=== PATIENT | male | born 1955 | race Caucasian/White ===

== ENCOUNTER 2016-04-04 10:52 | Emergency (ER) | payer MEDICARE, OTHER ==
[2016-04-04] MEDS ORDERED: Famotidine 20 MG TAB ONE (12:00)
[2016-04-04] MEDS ORDERED: Lorazepam 1 MG TAB ONE (12:00)
[2016-04-04] MEDS ORDERED: diphenhydrAMINE HCl 25 MG CAP ONE (12:00)
[2016-04-04] MEDS ORDERED: Dexamethasone 4 MG TAB ONE (12:00)
== END 2016-04-04 12:05 | disposition home or self-care (01) ==
LOC: MADERS 10:52
DX: L29.9 Pruritus, unspecified (principal); F41.9 Anxiety disorder, unspecified; Z79.899 Other long term (current) drug therapy; Z87.891 Personal history of nicotine dependence
CPT/HCPCS: 99282; J8540

== ENCOUNTER 2016-04-29 11:25 | Outpatient (CLI) | payer MEDICARE | END 2016-04-29 11:26 | disposition home or self-care (01) | LOC: MADLAB 11:25 | PROVIDERS: ATTEND Allergy & Immunology | DX: J45.20 Mild intermittent asthma, uncomplicated (principal); L20.81 Atopic neurodermatitis; L50.1 Idiopathic urticaria; Z93.2 Ileostomy status | CPT/HCPCS: 36415; 82785 ==

== ENCOUNTER 2016-05-10 13:30 | Outpatient (CLI) | payer MEDICARE | END 2016-05-10 13:31 | disposition home or self-care (01) | LOC: MADLAB 13:30 | PROVIDERS: ATTEND Allergy & Immunology | DX: L20.81 Atopic neurodermatitis (principal); L50.1 Idiopathic urticaria; J45.20 Mild intermittent asthma, uncomplicated; Z93.2 Ileostomy status | CPT/HCPCS: 36415 ==

== ENCOUNTER 2016-05-21 13:44 | Outpatient (CLI) | payer MEDICARE ==
--- NOTE | 2016-05-24 08:41 | RAD ---
TWO VIEW CHEST 05/21/16 COMPARISON: 01/08/12 INDICATION: Shortness of breath. FINDINGS: There is hyperinflation of the lungs without consolidation or effusion. The cardiac silhouette is wi thin normal limits in size. IMPRESSION: No focal consolidation. POS: [facility]
== END 2016-05-21 13:45 | disposition home or self-care (01) ==
LOC: MADEKG 13:44
PROVIDERS: ATTEND Family Medicine
DX: R06.02 Shortness of breath (principal)
CPT/HCPCS: 71020; 93005

== ENCOUNTER 2016-05-29 20:01 | Emergency (ER) | payer MEDICARE ==
[2016-05-29] MEDS ORDERED: Ondansetron ODT 4 MG TAB ONE (21:25)
[2016-05-29] MEDS ORDERED: diphenhydrAMINE HCl 25 MG CAP ONE (21:25)
[2016-05-29] MEDS ORDERED: predniSONE 20 MG TAB ONE (21:25)
--- NOTE | 2016-05-29 21:26 | RAD ---
CERVICAL SPINE: 05/29/16 Three views obtained. HISTORY: Neck pain. Joint pain. Cervical vertebrae maintain height and alignment. There is straightening of the lordotic curvature. Moderate degenerative changes are noted in the mid cervical spine with large anterior osteophytes se en at C4-5, C5-6, and C6-7. There is loss of disc height at C5-6. IMPRESSION: Moderate degenerative changes in the mid and lower cervical spine. POS: [facility]
--- NOTE | 2016-05-29 21:27 | RAD ---
RIGHT SHOULDER: 05/29/16 HISTORY: Shoulder pain. Mild spurring at the AC joint. There is no significant degenerative change at the glenohumeral joint . However, there is some calcific density over the humeral head near the greater tuberosity which co uld represent calcific tendinosis. IMPRESSION: Degenerative changes as described. POS: [facility]
== END 2016-05-29 21:57 | disposition home or self-care (01) ==
LOC: MADERS 20:01
DX: M19.011 Primary osteoarthritis, right shoulder (principal); M47.812 Spondylosis without myelopathy or radiculopathy, cervical region; M75.31 Calcific tendinitis of right shoulder; M50.20 Other cervical disc displacement, unspecified cervical region; F41.9 Anxiety disorder, unspecified; Z87.891 Personal history of nicotine dependence; Z79.891 Long term (current) use of opiate analgesic; Z79.899 Other long term (current) drug therapy; Z79.2 Long term (current) use of antibiotics
CPT/HCPCS: 72040; 96372; J2270; J7506; Q0162

== ENCOUNTER 2016-06-15 13:17 | Emergency (ER) | payer MEDICARE ==
[~2016-06-15 13:17] MED LIST: Sodium Chloride 0.9% 1,000 ML BAG ONE; Sodium Chloride 0.9% 500 ML BAG ONE
[2016-06-15 14:24] LABS: ALT (SGPT) 13 U/L (8-55); AST (SGOT) 9 U/L (5-34); Albumin 2.8 g/dL (3.5-5.0); Alkaline Phosphatase 34 U/L (40-150); Anion Gap 15 mmol/L (10-20); BUN (Urea Nitrogen) 49 mg/dL (8.4-25.7); Bilirubin, Total Less than 0.3 mg/dL (0.2-1.2); Calc. Creatinine Clearance 0 mL/min (70-130); Calcium 7.7 mg/dL (7.8-10.44); Carbon Dioxide 21 mmol/L (22-29); Chloride 103 mmol/L (98-107); Estimated GFR-MDRD 69; Globulin 1.5 g/dL (2.4-3.5); Glucose 171 mg/dL (70-105); Potassium 4.7 mmol/L (3.5-5.1); Protein, Total 4.3 g/dL (6.0-8.3); Sodium 134 mmol/L (136-145)
--- NOTE | 2016-06-15 14:37 | RAD ---
PORTABLE UPRIGHT FRONTAL CHEST RADIOGRAPH: Date: 06-15-16 Comparison: 05-21-16 History: Dyspnea. FINDINGS: No pneumothorax, pleural fluid, focal consolidation or alveolar edema. Mild interstitial prominence with pulmonary hyperinflation noted, stable. IMPRESSION: Stable appearance of the chest. No acute findings. POS: [facility]
[2016-06-15 14:47] LABS: Anisocytosis MODERATE=16-30 cells (100X) (0-5/hpf); Hemoglobin 6.7 g/dL (14.0-18.0); Hypochromia MODERATE=16-30 cells (100X) (0-5/hpf); Lymphocytes 4 % (21-51); MDiff Complete? YES; Mean Corpuscular Hemoglobin 30.1 pg (27.0-31.0); Mean Corpuscular Volume 88.7 fl (80.0-94.0); Microcytosis MODERATE=15-30 cells (100X) (0-5/hpf); Monocytes 2 % (0-10); Neutrophil 94 % (42-75); PLT Morphology Comment Appears Adequate; Platelet Count 272 thou/uL (130-400); RBC Distribution Width 15.2 % (11.5-14.5); Red Blood Cell (RBC) Count 2.21 mill/uL (4.70-6.10); White Blood Cell (WBC) Count 21.8 thou/uL (4.8-10.8)
[2016-06-15 14:54] LABS: Bilirubin Negative (Negative); Blood, Urine Negative (Negative); Clarity Clear (Clear); Glucose, Urine (Dipstick) Negative (Negative); Leukocyte Negative (Negative); Nitrite Negative (Negative); Protein, Urine (Dipstick) Negative (Neg-Trace); Urobilinogen 0.2 mg/dL (0.2-1.0); pH, Urine 5.5 (5.0-9.0)
[2016-06-15 15:05] LABS: Amphetamine Not Detected (NotDetected); Cocaine Metabolite Screen Not Detected (NotDetected); Methamphetamine Not Detected (NotDetected); Opiate Screen Detected (NotDetected); Phencyclidine (PCP) Not Detected (NotDetected); THC/Cannabinoid Screen Not Detected (NotDetected)
[2016-06-15 15:06] LABS: Barbiturates Screen Not Detected (NotDetected); Benzodiazepine Screen Detected (NotDetected); Medtox Control Line Valid? VALID (VALID); Methadone Not Detected (NotDetected); Oxycodone Screen Not Detected (NotDetected); Tricyclic Screen Detected (NotDetected)
[2016-06-15] MEDS ORDERED: Ondansetron HCl/PF 4 MG/2 ML Vial ONE (15:06)
== END 2016-06-15 17:27 | disposition short-term general hospital (02) ==
LOC: MADERS 13:17
DX: K92.2 Gastrointestinal hemorrhage, unspecified (principal); R06.02 Shortness of breath; F41.9 Anxiety disorder, unspecified; F17.210 Nicotine dependence, cigarettes, uncomplicated; Z79.899 Other long term (current) drug therapy
CPT/HCPCS: 36430; 71010; 80053; 80306; 81003; 82274; 83880; 84484; 85025; 86850; 86900; 86901; 86920; 86922; 93005; 96361; 96374; 96375; 96376; 99285; P9016; 36415; J1170; J2405; J7050

== ENCOUNTER 2016-06-21 12:12 | Outpatient (CLI) | payer MEDICARE ==
[2016-06-21 12:35] LABS: #Eosinphils 0.2 thou/uL (0.0-0.7); #Lymphocytes 0.7 thou/uL (1.20-3.40); #Monocytes 0.3 thou/uL (0.11-0.59); #Neutrophils 6.5 thou/uL (1.40-6.50); %Basophils 0.5 % (0.0-1.0); %Eosinophils 2.4 % (0.0-10.0); %Lymphocytes 8.7 % (21.0-51.0); %Monocytes 3.5 % (0.0-10.0); %Neutrophils 84.9 % (42.0-75.0); Hemoglobin 7.5 g/dL (14.0-18.0); Mean Corpuscular HGB CONC 32.4 g/dL (32.0-36.0); Mean Corpuscular Hemoglobin 29.5 pg (27.0-31.0); Mean Corpuscular Volume 90.9 fl (80.0-94.0); Mean Platelet Volume 4.9 fL (7.4-10.4); Platelet Count 270 thou/uL (130-400); RBC Distribution Width 15.1 % (11.5-14.5); Red Blood Cell (RBC) Count 2.55 mill/uL (4.70-6.10); White Blood Cell (WBC) Count 7.7 thou/uL (4.8-10.8)
== END 2016-06-21 12:13 | disposition home or self-care (01) ==
LOC: MADLABBHPM 12:12
PROVIDERS: ATTEND Family Medicine
DX: R92.2 Inconclusive mammogram (principal)
CPT/HCPCS: 36415; 85025

== ENCOUNTER 2016-07-19 16:43 | Emergency (ER) | payer MEDICARE ==
[~2016-07-19 16:43] MED LIST changes: +Iopamidol 370 76% 125 ML VIAL FS ONE; +Sodium Chloride 0.9% 100 ML BAG ONE; -Sodium Chloride 0.9% 500 ML BAG ONE
[2016-07-19 17:44] LABS: #Basophils 0.1 thou/uL (0.0-0.2); #Eosinphils 0.3 thou/uL (0.0-0.7); #Lymphocytes 1.5 thou/uL (1.20-3.40); #Monocytes 0.7 thou/uL (0.11-0.59); #Neutrophils 10.2 thou/uL (1.40-6.50); %Basophils 0.8 % (0.0-1.0); %Eosinophils 2.5 % (0.0-10.0); %Lymphocytes 11.5 % (21.0-51.0); %Monocytes 5.3 % (0.0-10.0); Hemoglobin 10.3 g/dL (14.0-18.0); Mean Corpuscular HGB CONC 33.4 g/dL (32.0-36.0); Mean Corpuscular Volume 77.8 fl (80.0-94.0); Mean Platelet Volume 5.3 fL (7.4-10.4); Platelet Count 432 thou/uL (130-400); RBC Distribution Width 16.4 % (11.5-14.5); Red Blood Cell (RBC) Count 3.97 mill/uL (4.70-6.10); White Blood Cell (WBC) Count 12.8 thou/uL (4.8-10.8)
[2016-07-19] MEDS ORDERED: Pantoprazole 40 MG VIAL ONE (17:54)
[2016-07-19 17:57] LABS: ALT (SGPT) 19 U/L (8-55); AST (SGOT) 13 U/L (5-34); Albumin 3.5 g/dL (3.5-5.0); Alkaline Phosphatase 66 U/L (40-150); Anion Gap 15 mmol/L (10-20); BUN (Urea Nitrogen) 13 mg/dL (8.4-25.7); Calc. Creatinine Clearance 0 mL/min (70-130); Calcium 8.9 mg/dL (7.8-10.44); Carbon Dioxide 23 mmol/L (22-29); Chloride 95 mmol/L (98-107); Estimated GFR-MDRD 73; Globulin 2.5 g/dL (2.4-3.5); Glucose 104 mg/dL (70-105); Magnesium 1.6 mg/dL (1.6-2.6); Potassium 3.9 mmol/L (3.5-5.1); Sodium 129 mmol/L (136-145)
[2016-07-19 17:58] LABS: Troponin I 0.011 ng/mL (< 0.028)
[2016-07-19 18:12] LABS: Bilirubin, Total Less than 0.3 mg/dL (0.2-1.2)
[2016-07-19] MEDS ORDERED: Magnesium Sulfate 2 GM/NS 0.9% 50 ML BAG ONE (18:24)
--- NOTE | 2016-07-19 18:27 | RAD ---
CHEST TWO VIEWS: Comparison: 05-21-16 History: Shortness of breath. FINDINGS: Heart size and mediastinum are within normal limits. The lungs are clear of any infiltrative process . Lungs are mildly hyperexpanded. IMPRESSION: No active intrathoracic disease. Changes suggest possibly an element of COPD. POS: [facility]
[2016-07-19 20:31] LABS: #Basophils 0.1 thou/uL (0.0-0.2); #Eosinphils 0.4 thou/uL (0.0-0.7); #Lymphocytes 1.4 thou/uL (1.20-3.40); #Monocytes 0.7 thou/uL (0.11-0.59); #Neutrophils 9.6 thou/uL (1.40-6.50); %Basophils 0.5 % (0.0-1.0); %Eosinophils 3.4 % (0.0-10.0); %Lymphocytes 11.7 % (21.0-51.0); %Monocytes 5.8 % (0.0-10.0); %Neutrophils 78.6 % (42.0-75.0); Hemoglobin 10.4 g/dL (14.0-18.0); Mean Corpuscular HGB CONC 33.2 g/dL (32.0-36.0); Mean Corpuscular Hemoglobin 26.2 pg (27.0-31.0); Mean Platelet Volume 5.6 fL (7.4-10.4); Platelet Count 422 thou/uL (130-400); RBC Distribution Width 16.6 % (11.5-14.5); Red Blood Cell (RBC) Count 3.96 mill/uL (4.70-6.10); White Blood Cell (WBC) Count 12.2 thou/uL (4.8-10.8)
[2016-07-19 23:20] LABS: #Eosinphils 0.4 thou/uL (0.0-0.7); #Lymphocytes 1.3 thou/uL (1.20-3.40); #Monocytes 0.7 thou/uL (0.11-0.59); #Neutrophils 7.1 thou/uL (1.40-6.50); %Basophils 0.3 % (0.0-1.0); %Eosinophils 4.2 % (0.0-10.0); %Lymphocytes 13.2 % (21.0-51.0); %Monocytes 6.9 % (0.0-10.0); %Neutrophils 75.4 % (42.0-75.0); Hemoglobin 9.6 g/dL (14.0-18.0); Mean Corpuscular HGB CONC 32.5 g/dL (32.0-36.0); Mean Corpuscular Hemoglobin 25.8 pg (27.0-31.0); Mean Corpuscular Volume 79.5 fl (80.0-94.0); Platelet Count 408 thou/uL (130-400); RBC Distribution Width 16.4 % (11.5-14.5); Red Blood Cell (RBC) Count 3.73 mill/uL (4.70-6.10); White Blood Cell (WBC) Count 9.5 thou/uL (4.8-10.8)
--- NOTE | 2016-07-19 23:38 | CT ---
CT ANGIO OF CHEST PERFORMED WITH INTRAVENOUS CONTRAST ENHANCEMENT WITH 3D RECONSTRUCTIONS: History: Shortness of breath. FINDINGS: There is linear atelectasis or scar within the lung bases. No pulmonary nodules or pleural effusions . There is no significant mediastinal or hilar lymphadenopathy. The thoracic aorta is normal in calibe r. There is good pulmonary artery opacification, there is no CT evidence for pulmonary embolus. Visualized liver parenchyma shows hypodensity most likely representing a cyst. There is increased at tenuation within the lower most slice in the region of the gallbladder which could represent a galls tone. There is a possible parapelvic cyst with slight dilatation of the upper pole collecting system of the left kidney. The kidney is not visualized in its entirety. IMPRESSION: 1. No CT evidence for pulmonary embolus. 2. Questionable gallstone. 3. Cystic appearing area in the upper pole region of the left kidney. This is the only part of the k idney visualized. This could represent a parapelvic cyst. I cannot exclude dilatation of the left co llecting system. I do not definitely see this appearance on the previous 01-13-16 exam. POS: [facility]
[2016-07-20 00:06] LABS: Bilirubin Negative (Negative); Blood, Urine Negative (Negative); Clarity Clear (Clear); Glucose, Urine (Dipstick) Negative (Negative); Leukocyte Negative (Negative); Nitrite Negative (Negative); Protein, Urine (Dipstick) Negative (Neg-Trace); Urobilinogen 0.2 mg/dL (0.2-1.0)
== END 2016-07-20 00:35 | disposition short-term general hospital (02) ==
LOC: MADERS 16:43
DX: R55 Syncope and collapse (principal); M54.9 Dorsalgia, unspecified; G89.29 Other chronic pain; F41.9 Anxiety disorder, unspecified; F17.210 Nicotine dependence, cigarettes, uncomplicated; Z79.899 Other long term (current) drug therapy
CPT/HCPCS: 36415; 71020; 71275; 80053; 81003; 82553; 83735; 83880; 84443; 84484; 85025; 85379; 86850; 86900; 86901; 93005; 96361; 96365; 96367; 96375; C9113; J1170; J3475; J7050

== ENCOUNTER 2016-08-31 11:35 | Outpatient (CLI) | payer MEDICARE ==
[2016-08-31 12:14] LABS: Hemoglobin 8.9 g/dL (14.0-18.0); Mean Corpuscular HGB CONC 29.9 g/dL (32.0-36.0); Mean Corpuscular Hemoglobin 22.4 pg (27.0-31.0); Mean Corpuscular Volume 74.9 fl (80.0-94.0); Mean Platelet Volume 5.9 fL (7.4-10.4); Platelet Count 409 thou/uL (130-400); RBC Distribution Width 16.8 % (11.5-14.5); Red Blood Cell (RBC) Count 3.98 mill/uL (4.70-6.10); White Blood Cell (WBC) Count 5.7 thou/uL (4.8-10.8)
== END 2016-08-31 11:36 | disposition home or self-care (01) ==
LOC: MADLAB 11:35
PROVIDERS: ATTEND Internal Medicine Cardiovascular Disease
DX: I48.0 Paroxysmal atrial fibrillation (principal); I25.5 Ischemic cardiomyopathy
CPT/HCPCS: 36415; 85027

== ENCOUNTER 2016-09-20 06:20 | Emergency (ER) | payer MEDICARE ==
[2016-09-20] MEDS ORDERED: Ondansetron HCl/PF 4 MG/2 ML Vial ONE (07:07)
[2016-09-20] MEDS ORDERED: Piperacillin/Tazobactam 3.375 GM VIAL ONE (07:07)
[2016-09-20 07:29] LABS: #Eosinphils 0.3 thou/uL (0.0-0.7); #Lymphocytes 0.8 thou/uL (1.20-3.40); #Monocytes 0.5 thou/uL (0.11-0.59); #Neutrophils 6.8 thou/uL (1.40-6.50); %Basophils 0.5 % (0.0-1.0); %Eosinophils 3.4 % (0.0-10.0); %Lymphocytes 8.7 % (21.0-51.0); %Monocytes 6.2 % (0.0-10.0); %Neutrophils 81.3 % (42.0-75.0); Hemoglobin 8.3 g/dL (14.0-18.0); Mean Corpuscular HGB CONC 29.9 g/dL (32.0-36.0); Mean Corpuscular Hemoglobin 21.9 pg (27.0-31.0); Mean Corpuscular Volume 73.1 fl (80.0-94.0); Mean Platelet Volume 5.3 fL (7.4-10.4); Platelet Count 520 thou/uL (130-400); Red Blood Cell (RBC) Count 3.77 mill/uL (4.70-6.10); White Blood Cell (WBC) Count 8.3 thou/uL (4.8-10.8)
[2016-09-20 07:33] LABS: Anisocytosis SLIGHT = 6-15 cells (100X) (0-5/hpf); Hypochromia SLIGHT = 6-15 cells (100X) (0-5/hpf); Microcytosis SLIGHT = 6-15 cells (100X) (0-5/hpf); Poikilocytosis MODERATE=16-30 cells (100X) (0-5/hpf)
[2016-09-20 07:34] LABS: PLT Morphology Comment Appears Increased
[2016-09-20 07:59] LABS: ALT (SGPT) 10 U/L (8-55); AST (SGOT) 18 U/L (5-34); Albumin 3.3 g/dL (3.4-4.8); Alkaline Phosphatase 54 U/L (40-150); Anion Gap 14 mmol/L (10-20); BUN (Urea Nitrogen) 11 mg/dL (8.4-25.7); Bilirubin, Total Less than 0.3 mg/dL (0.2-1.2); Calc. Creatinine Clearance 0 mL/min (70-130); Carbon Dioxide 22 mmol/L (23-31); Chloride 102 mmol/L (98-107); Estimated GFR-MDRD 71; Globulin 2.9 g/dL (2.4-3.5); Glucose 101 mg/dL (80-115); Potassium 4.1 mmol/L (3.5-5.1); Protein, Total 6.2 g/dL (5.8-8.1); Sodium 134 mmol/L (136-145)
[2016-09-20] MEDS ORDERED: Sodium Chloride 0.9% 1,000 ML BAG ONE (08:50)
[2016-09-20] MEDS ORDERED: Sodium Chloride 0.9% 100 ML BAG ONE (08:50)
[2016-09-20 09:22] LABS: Bilirubin Negative (Negative); Blood, Urine Negative (Negative); Clarity Clear (Clear); Glucose, Urine (Dipstick) Negative (Negative); Leukocyte Negative (Negative); Nitrite Negative (Negative); Protein, Urine (Dipstick) Negative (Neg-Trace); Specific Gravity, Urine 1.015 (1.005-1.030); Urobilinogen 0.2 mg/dL (0.2-1.0)
== END 2016-09-20 09:13 | disposition short-term general hospital (02) ==
LOC: MADERS 06:20
DX: K37 Unspecified appendicitis (principal); D64.9 Anemia, unspecified; F41.9 Anxiety disorder, unspecified; F17.210 Nicotine dependence, cigarettes, uncomplicated; Z79.899 Other long term (current) drug therapy
CPT/HCPCS: 36415; 80053; 81003; 85025; 87040; 94760; 96361; 96365; 96375; J2270; J2405; J2543; J7050

== ENCOUNTER 2016-10-31 18:36 | Emergency (ER) | payer MEDICARE ==
[~2016-10-31 18:36] MED LIST changes: +Donnatal Elixir 16.2 MG/5 ML UDCUP ONE; -Iopamidol 370 76% 125 ML VIAL FS ONE; -Sodium Chloride 0.9% 1,000 ML BAG ONE; -Sodium Chloride 0.9% 100 ML BAG ONE
[2016-10-31] MEDS ORDERED: Promethazine HCl 25 MG/ML VIAL ONE (19:15)
[2016-10-31] MEDS ORDERED: Mag-Al Plus 1200 MG/1200 MG/120 MG/30 ML UDCUP ONE ×2 (19:16→19:21)
[2016-10-31] MEDS ORDERED: Lidocaine Viscous Sol 2% 15 ml UD Cup ONE (19:16)
[2016-10-31] MEDS ORDERED: Donnatal Elixir 16.2 MG/5 ML UDCUP ONE (19:16)
== END 2016-10-31 19:52 | disposition home or self-care (01) ==
LOC: MADERS 18:36
DX: K29.00 Acute gastritis without bleeding (principal); F41.9 Anxiety disorder, unspecified; F17.210 Nicotine dependence, cigarettes, uncomplicated; Z79.899 Other long term (current) drug therapy
CPT/HCPCS: 96372; J2550

== ENCOUNTER 2016-11-01 12:52 | Inpatient (IN) | payer MEDICARE ==
[2016-11-01] MEDS ORDERED: traMADol HCl 50 MG TAB PO SCH (14:45)
[2016-11-01] MEDS: Carvedilol 6.25 MG TAB PO SCH (16:31)
[2016-11-01] MEDS ORDERED: Ventolin HFA Inhaler 60 PUFF INHALER INH PRN (17:46)
[2016-11-01] MEDS ORDERED: traMADol HCl 50 MG TAB PO PRN (17:47)
[2016-11-01] MEDS: Ipratropium Bromide 2.5 ml Neb NEB SCH ×2 (18:12→23:01)
[2016-11-01] MEDS: HYDROcodone/Acetaminophen 10/325 mg Tablet PO PRN (19:19)
[2016-11-01] MEDS: Famotidine 20 MG TAB PO SCH (20:00)
[2016-11-01] MEDS: Acetaminophen 325 MG TAB PO PRN (23:13)
[2016-11-02] MEDS: HYDROcodone/Acetaminophen 10/325 mg Tablet PO PRN ×3 (03:42→19:17)
[2016-11-02] MEDS: Ipratropium Bromide 2.5 ml Neb NEB SCH ×4 (05:13→23:01)
[2016-11-02 05:35] LABS: ALT (SGPT) 86 U/L (8-55); AST (SGOT) 28 U/L (5-34); Albumin 3.2 g/dL (3.4-4.8); Alkaline Phosphatase 271 U/L (40-150); Anion Gap 16 mmol/L (10-20); BUN (Urea Nitrogen) 25 mg/dL (8.4-25.7); Bilirubin, Total 0.3 mg/dL (0.2-1.2); Calc. Creatinine Clearance 0 mL/min (70-130); Carbon Dioxide 20 mmol/L (23-31); Chloride 94 mmol/L (98-107); Estimated GFR-MDRD 90; Globulin 3.2 g/dL (2.4-3.5); Glucose 116 mg/dL (80-115); Potassium 3.7 mmol/L (3.5-5.1); Protein, Total 6.4 g/dL (5.8-8.1); Sodium 126 mmol/L (136-145)
[2016-11-02 05:40] LABS: #Basophils 0.1 thou/uL (0.0-0.2); #Eosinphils 0.5 thou/uL (0.0-0.7); #Lymphocytes 1.1 thou/uL (1.20-3.40); #Monocytes 0.5 thou/uL (0.11-0.59); #Neutrophils 5.3 thou/uL (1.40-6.50); %Basophils 0.8 % (0.0-1.0); %Eosinophils 7.2 % (0.0-10.0); %Lymphocytes 14.3 % (21.0-51.0); %Neutrophils 70.7 % (42.0-75.0); Hemoglobin 9.4 g/dL (14.0-18.0); Mean Corpuscular HGB CONC 32.6 g/dL (32.0-36.0); Mean Corpuscular Hemoglobin 26.2 pg (27.0-31.0); Mean Corpuscular Volume 80.3 fl (80.0-94.0); Mean Platelet Volume 5.6 fL (7.4-10.4); Platelet Count 477 thou/uL (130-400); RBC Distribution Width 20.2 % (11.5-14.5); Red Blood Cell (RBC) Count 3.58 mill/uL (4.70-6.10); White Blood Cell (WBC) Count 7.5 thou/uL (4.8-10.8)
[2016-11-02 05:41] LABS: Anisocytosis SLIGHT = 6-15 cells (100X) (0-5/hpf); Hypochromia SLIGHT = 6-15 cells (100X) (0-5/hpf); MDiff Complete? YES; PLT Morphology Comment Appears Adequate; Poikilocytosis SLIGHT = 6-15 cells (100X) (0-5/hpf); RBC Morphology ABNORMAL
[2016-11-02] MEDS ORDERED: Spiriva 18 MCG CAP (Box of 5 Caps) INH SCH (07:00)
[2016-11-02] MEDS ORDERED: Furosemide 40 MG TAB PO SCH (07:30)
[2016-11-02] MEDS ORDERED: Zolpidem Tartrate 5 MG TAB PO PRN (08:23)
[2016-11-02] MEDS: Carvedilol 6.25 MG TAB PO SCH ×2 (08:46→17:29)
[2016-11-02] MEDS: Spironolactone 25 MG TAB PO SCH (08:46)
[2016-11-02] MEDS: Lisinopril 5 MG TAB PO SCH (08:46)
[2016-11-02] MEDS: Famotidine 20 MG TAB PO SCH ×2 (08:46→20:23)
[2016-11-02] MEDS: Tamsulosin HCl 0.4 MG CAP PO SCH (08:47)
[2016-11-02 17:25] LABS: Osmolality, Urine 354 mOsm/kg (300-900)
[2016-11-02 17:28] LABS: Sodium, Urine Less than 20 mmol/L (Not Available)
[2016-11-02] MEDS: Cyclobenzaprine 10 MG TAB PO PRN (20:23)
[2016-11-02] MEDS: Zolpidem Tartrate 5 MG TAB PO SCH (20:23)
[2016-11-03] MEDS: HYDROcodone/Acetaminophen 10/325 mg Tablet PO PRN ×4 (02:33→20:38)
[2016-11-03] MEDS: Ipratropium Bromide 2.5 ml Neb NEB SCH ×3 (05:00→17:21)
[2016-11-03 05:42] LABS: Anion Gap 15 mmol/L (10-20); BUN (Urea Nitrogen) 18 mg/dL (8.4-25.7); Calc. Creatinine Clearance 88 mL/min (70-130); Calcium 8.7 mg/dL (7.8-10.44); Carbon Dioxide 18 mmol/L (23-31); Chloride 99 mmol/L (98-107); Estimated GFR-MDRD Greater than 90; Glucose 96 mg/dL (80-115); Sodium 128 mmol/L (136-145)
[2016-11-03] MEDS: Acetaminophen 325 MG TAB PO PRN ×2 (06:19→12:50)
[2016-11-03] MEDS: Cyclobenzaprine 10 MG TAB PO PRN ×2 (06:19→12:50)
[2016-11-03] MEDS: Carvedilol 6.25 MG TAB PO SCH ×2 (09:00→16:29)
[2016-11-03] MEDS: Lisinopril 5 MG TAB PO SCH (09:01)
[2016-11-03] MEDS: Spironolactone 25 MG TAB PO SCH (09:01)
[2016-11-03] MEDS: Famotidine 20 MG TAB PO SCH ×2 (09:01→20:21)
[2016-11-03] MEDS: Tamsulosin HCl 0.4 MG CAP PO SCH (09:02)
[2016-11-03] MEDS: Zolpidem Tartrate 5 MG TAB PO SCH (20:20)
[2016-11-04] MEDS: Ipratropium Bromide 2.5 ml Neb NEB SCH ×5 (00:05→23:59)
[2016-11-04] MEDS: HYDROcodone/Acetaminophen 10/325 mg Tablet PO PRN ×4 (04:05→21:18)
[2016-11-04] MEDS: Carvedilol 6.25 MG TAB PO SCH ×2 (08:07→17:07)
[2016-11-04] MEDS: Lisinopril 5 MG TAB PO SCH (08:08)
[2016-11-04] MEDS: Famotidine 20 MG TAB PO SCH ×2 (08:08→21:18)
[2016-11-04] MEDS: Spironolactone 25 MG TAB PO SCH (08:08)
[2016-11-04] MEDS: Tamsulosin HCl 0.4 MG CAP PO SCH (08:08)
[2016-11-04] MEDS: hydrOXYzine 25 MG TAB PO PRN (18:05)
[2016-11-04] MEDS: Zolpidem Tartrate 5 MG TAB PO SCH (21:17)
[2016-11-05] MEDS: Ipratropium Bromide 2.5 ml Neb NEB SCH ×4 (06:05→23:44)
[2016-11-05] MEDS: HYDROcodone/Acetaminophen 10/325 mg Tablet PO PRN ×4 (06:06→20:47)
[2016-11-05] MEDS: Carvedilol 6.25 MG TAB PO SCH ×2 (08:54→16:43)
[2016-11-05] MEDS: Famotidine 20 MG TAB PO SCH ×2 (08:54→20:08)
[2016-11-05] MEDS: Lisinopril 5 MG TAB PO SCH (08:54)
[2016-11-05] MEDS: Spironolactone 25 MG TAB PO SCH (08:54)
[2016-11-05] MEDS: Tamsulosin HCl 0.4 MG CAP PO SCH (08:55)
[2016-11-05] MEDS: Zolpidem Tartrate 5 MG TAB PO SCH (20:08)
[2016-11-05] MEDS: Cyclobenzaprine 10 MG TAB PO PRN (20:48)
[2016-11-06] MEDS: HYDROcodone/Acetaminophen 10/325 mg Tablet PO PRN ×5 (02:10→20:10)
[2016-11-06] MEDS: Ipratropium Bromide 2.5 ml Neb NEB SCH ×3 (05:35→18:16)
[2016-11-06] MEDS: Carvedilol 6.25 MG TAB PO SCH ×2 (08:04→16:40)
[2016-11-06] MEDS: Lisinopril 5 MG TAB PO SCH (08:05)
[2016-11-06] MEDS: Tamsulosin HCl 0.4 MG CAP PO SCH (08:05)
[2016-11-06] MEDS: Spironolactone 25 MG TAB PO SCH (08:05)
[2016-11-06] MEDS: Famotidine 20 MG TAB PO SCH ×2 (08:05→20:08)
[2016-11-06] MEDS: Zolpidem Tartrate 5 MG TAB PO SCH (20:08)
[2016-11-07] MEDS: Ipratropium Bromide 2.5 ml Neb NEB SCH ×4 (01:23→17:49)
[2016-11-07] MEDS: HYDROcodone/Acetaminophen 10/325 mg Tablet PO PRN ×5 (02:33→21:43)
[2016-11-07] MEDS: Cyclobenzaprine 10 MG TAB PO PRN (02:34)
[2016-11-07] MEDS: Famotidine 20 MG TAB PO SCH ×2 (08:21→20:00)
[2016-11-07] MEDS: Spironolactone 25 MG TAB PO SCH (08:21)
[2016-11-07] MEDS: Tamsulosin HCl 0.4 MG CAP PO SCH (08:21)
[2016-11-07] MEDS: Carvedilol 6.25 MG TAB PO SCH ×2 (08:21→16:42)
[2016-11-07] MEDS: Lisinopril 5 MG TAB PO SCH (08:27)
[2016-11-07] MEDS: Zolpidem Tartrate 5 MG TAB PO SCH (20:00)
[2016-11-07] MEDS: hydrOXYzine 25 MG TAB PO PRN (21:45)
[2016-11-08] MEDS: HYDROcodone/Acetaminophen 10/325 mg Tablet PO PRN ×5 (02:48→20:05)
[2016-11-08] MEDS: Ipratropium Bromide 2.5 ml Neb NEB SCH ×4 (02:49→18:02)
[2016-11-08] MEDS: Carvedilol 6.25 MG TAB PO SCH ×2 (07:46→16:10)
[2016-11-08] MEDS: Spironolactone 25 MG TAB PO SCH (07:46)
[2016-11-08 07:52] LABS: #Eosinphils 0.3 thou/uL (0.0-0.7); #Monocytes 0.3 thou/uL (0.11-0.59); #Neutrophils 4.1 thou/uL (1.40-6.50); %Basophils 0.6 % (0.0-1.0); %Eosinophils 4.7 % (0.0-10.0); %Lymphocytes 18.3 % (21.0-51.0); %Monocytes 4.7 % (0.0-10.0); %Neutrophils 71.7 % (42.0-75.0); Hemoglobin 9.8 g/dL (14.0-18.0); Mean Corpuscular HGB CONC 30.8 g/dL (32.0-36.0); Mean Corpuscular Volume 84.5 fl (80.0-94.0); Mean Platelet Volume 5.2 fL (7.4-10.4); Platelet Count 455 thou/uL (130-400); RBC Distribution Width 21.3 % (11.5-14.5); Red Blood Cell (RBC) Count 3.77 mill/uL (4.70-6.10); White Blood Cell (WBC) Count 5.7 thou/uL (4.8-10.8)
[2016-11-08 08:12] LABS: Anion Gap 13 mmol/L (10-20); BUN (Urea Nitrogen) 12 mg/dL (8.4-25.7); Calc. Creatinine Clearance 88 mL/min (70-130); Calcium 9.2 mg/dL (7.8-10.44); Carbon Dioxide 21 mmol/L (23-31); Chloride 104 mmol/L (98-107); Estimated GFR-MDRD Greater than 90; Glucose 89 mg/dL (80-115); Potassium 4.2 mmol/L (3.5-5.1); Sodium 134 mmol/L (136-145)
[2016-11-08 08:22] LABS: Anisocytosis SLIGHT = 6-15 cells (100X) (0-5/hpf); PLT Morphology Comment Appears Adequate; Poikilocytosis SLIGHT = 6-15 cells (100X) (0-5/hpf)
[2016-11-08] MEDS: Lisinopril 5 MG TAB PO SCH (08:53)
[2016-11-08] MEDS: Famotidine 20 MG TAB PO SCH ×2 (08:53→20:04)
[2016-11-08] MEDS: Tamsulosin HCl 0.4 MG CAP PO SCH (08:55)
[2016-11-08] MEDS ORDERED: Sodium Chloride Irrig Solution 250 ML BOT ONE (13:31)
[2016-11-08 19:33] VITALS: TEMP 97.7
[2016-11-08] MEDS: Zolpidem Tartrate 5 MG TAB PO SCH (20:04)
[2016-11-08] MEDS: Cyclobenzaprine 10 MG TAB PO PRN (20:14)
[2016-11-09] MEDS: Ipratropium Bromide 2.5 ml Neb NEB SCH ×2 (03:04→04:27)
[2016-11-09] MEDS: HYDROcodone/Acetaminophen 10/325 mg Tablet PO PRN ×2 (04:21→08:53)
[2016-11-09 04:38] VITALS: BMI 22.2
[2016-11-09 08:20] VITALS: BP 118/74
[2016-11-09] MEDS: Carvedilol 6.25 MG TAB PO SCH (08:54)
[2016-11-09] MEDS: Lisinopril 5 MG TAB PO SCH (08:54)
[2016-11-09] MEDS: Spironolactone 25 MG TAB PO SCH (08:54)
[2016-11-09] MEDS: Famotidine 20 MG TAB PO SCH (08:54)
[2016-11-09] MEDS: Tamsulosin HCl 0.4 MG CAP PO SCH (08:55)
--- NOTE | 2016-11-09 17:24 | DIS ---
DATE OF ADMISSION: 11/01/2016 DATE OF DISCHARGE: 11/09/2016 FINAL DIAGNOSES: 1. Physical deconditioning. 2. Status post exploratory laparotomy for perforated appendicitis, complicated by postoperative ileus, small-bowel obstruction, peritonitis, sepsis, abscess, acute onset congestive heart failure, and weight loss. 3. Hyponatremia. 4. Hydronephrosis. 5. Osteoarthritis and chronic pain. 6. Iron deficiency anemia. 7. Cardiomyopathy. 8. Coronary artery disease. 9. Depression. HOSPITAL COURSE: This is a 61-year-old male, who was admitted from clinic on 11/01/2016 for swing bed stay, status post 7-week hospitalization at [facility] in [place]. The patient has been doing very well with physical therapy and occupational therapy. He is now ambulatory and walking around the hospital without assistance and without any unsteadiness in his gait. The patient's appetite has improved. He has been able to gain 5 pounds in the last week, and he has had good output from his ostomy bag. With some adjustments on his medications and improved diet, his hyponatremia has completely resolved. The patient has been receiving wound care for his postop wound infection, and on the day of discharge, the wound is nearly healed with just very superficial opening and no drainage or signs of infection. By the day of discharge, the patient was walking, tolerating a diet, and independent on his ADLs, although still with some generalized weakness and limitations upon discharge. Given that he is unable to drive and still requiring continued physical therapy and occupational therapy, the decision was made to order home healthcare to continue these therapies at home as well as wound care for his abdominal incision. Followup care has been arranged for the patient to be seen in 1 week in my clinic as well as with his urologist on Tuesday, his surgeon on , and the patient will subsequently be scheduling further followup appointments with his pain management physician, Dr. Reeves as well as his clinical coordinator, Dr. Diop. MEDICATIONS UPON DISCHARGE: 1. Carvedilol 6.25 mg twice daily. 2. Flexeril 10 mg 3 times a day as needed for muscle spasm. 3. Duloxetine 60 mg once daily. 4. Hydrocodone 10/325 mg every 6 hours as needed with #120 tablets dispensed. 5. Lisinopril 2.5 mg once daily. 6. Ventolin inhaler 2 puffs inhaled every 4 hours as needed. 7. Famotidine 20 mg twice daily. 8. Spironolactone 25 mg once daily. 9. Flomax 0.4 mg once daily. DIET: Upon discharge, regular. ACTIVITIES: The patient is to be ambulatory with assistance as needed with his walker. FOLLOWUP: As above, appointments have been arranged with his primary care physician as well as his specialist physicians. GERARDO
== END 2016-11-09 09:44 | disposition home health service (06) | DRG 949 ==
LOC: MADMS 12:52
PROVIDERS: ADMIT Family Medicine; ATTEND Family Medicine
DX: Z48.89 Encounter for other specified surgical aftercare (principal); K65.1 Peritoneal abscess; I42.9 Cardiomyopathy, unspecified; I11.0 Hypertensive heart disease with heart failure; I50.22 Chronic systolic (congestive) heart failure; E87.1 Hypo-osmolality and hyponatremia; N13.30 Unspecified hydronephrosis; R53.81 Other malaise; M19.90 Unspecified osteoarthritis, unspecified site; G89.29 Other chronic pain; D50.9 Iron deficiency anemia, unspecified; I25.10 Atherosclerotic heart disease of native coronary artery without angina pectoris; F32.9 Major depressive disorder, single episode, unspecified; Z87.891 Personal history of nicotine dependence; Z98.890 Other specified postprocedural states; M47.22 Other spondylosis with radiculopathy, cervical region; J44.9 Chronic obstructive pulmonary disease, unspecified; F43.21 Adjustment disorder with depressed mood
CPT/HCPCS: 36415; 80048; 80053; 82533; 83935; 84300; 84443; 85025; G8978-GP-CK; G8979-GP-CI; J7644

== ENCOUNTER 2016-11-30 08:15 | Outpatient (CLI) | payer MEDICARE ==
--- NOTE | 2016-11-30 09:37 | ULT ---
ULTRASOUND RETROPERITONEUM COMPLETE: (RENAL) Date: 11/30/16 HISTORY: 61-year-old male with right hydronephrosis, status post removal of right ureteral stent 2 weeks ago. COMPARISON: CT of 10/24/16. FINDINGS: The right ureteral stent is not visualized in the right renal collecting system. There is mild to mo derate dilation of the right renal collecting system. This has improved compared to the CT of . There is no left-sided hydronephrosis. The urinary bladder volume is approximately 220 mL prior to voiding, and approximately 60 mL after voiding. Right kidney measures 8.5 x 5 x 4.5 cm. Left kidney measures 11 x 5.5 x 5 cm. IMPRESSION: 1. Interval removal of right ureteral stent. 2. Residual mild to moderate right hydronephrosis. 3. Incomplete bladder emptying. ANA M Pandey POS: [facility]
== END 2016-11-30 08:16 | disposition home or self-care (01) ==
LOC: MADULT 08:15
PROVIDERS: ATTEND Urology
DX: N13.30 Unspecified hydronephrosis (principal)
CPT/HCPCS: 76770

== ENCOUNTER 2016-12-07 17:05 | Outpatient (CLI) | payer MEDICARE ==
--- NOTE | 2016-12-07 20:01 | CT ---
CT ABDOMEN AND PELVIS 12/07/16 HISTORY: Worsening pain for three days. Noncontrast enhanced CT images of the abdomen and pelvis obtained from the dome of the diaphragm thr ough the pubic symphysis. Images demonstrate extensive anterior abdominal midline incision with a right paracentral hernia thr ough the anterior abdominal wall. The lung bases are unremarkable. A small pericardial effusion is seen. No evidence of free intraperitoneal air seen. The liver and spleen are unremarkable. The gallbladder has been surgically removed. The pancreas is unremarkable. Adrenal glands are unremarkable. Both kidneys demonstrate moderate hydroureteronephrosis with moderately dilated ureters seen. I cat ot follow the complete course of the distal ureters. There may be bilateral distal ureteral obstruct ion. Correlate with retrograde evaluation. Extensive subumbilical surgical clips and changes seen. T here is an area of calcification and asymmetric density posterior and to the right of the bladder po ssibly representing a previous hematoma which is subsequently calcified. Extensive vascular calcific ation seen in the abdominal aorta and both external and internal iliac arteries. IMPRESSION: Extensive surgical changes a described above. POS: [facility]
== END 2016-12-07 17:06 | disposition home or self-care (01) ==
LOC: MADLAB 17:05
PROVIDERS: ATTEND Family Medicine
DX: R10.9 Unspecified abdominal pain (principal); D50.9 Iron deficiency anemia, unspecified; I10 Essential (primary) hypertension; Z98.890 Other specified postprocedural states
CPT/HCPCS: 74176

== ENCOUNTER 2016-12-10 18:03 | Emergency (ER) | payer MEDICARE ==
[~2016-12-10 18:03] MED LIST changes: -Donnatal Elixir 16.2 MG/5 ML UDCUP ONE; +Iopamidol 370 76% 100 ML VIAL ONE; +Sodium Chloride 0.9% 1,000 ML BAG ONE; +Sodium Chloride 0.9% 100 ML BAG ONE
--- NOTE | 2016-12-10 19:08 | RAD ---
UPRIGHT PORTABLE CHEST ONE VIEW: 12/10/16 HISTORY: 61-year-old male with dyspnea. COMPARISON: 09/30/16. FINDINGS: Heart size is normal. The lungs are clear. No pneumonia, edema, or pleural effusion. IMPRESSION: No acute intrathoracic disease. POS: [facility]
[2016-12-10] MEDS ORDERED: Morphine 10 MG/ML VIAL ONE (19:09)
[2016-12-10] MEDS ORDERED: Ondansetron HCl/PF 4 MG/2 ML Vial ONE (19:10)
[2016-12-10] MEDS ORDERED: Ketorolac Tromethamine 30 MG/ML VIAL ONE (19:10)
[2016-12-10 19:13] LABS: #Basophils 0.1 thou/uL (0.0-0.2); #Eosinphils 0.3 thou/uL (0.0-0.7); #Lymphocytes 0.9 thou/uL (1.20-3.40); #Monocytes 0.4 thou/uL (0.11-0.59); #Neutrophils 15.8 thou/uL (1.40-6.50); %Basophils 0.6 % (0.0-1.0); %Eosinophils 1.7 % (0.0-10.0); %Monocytes 2.5 % (0.0-10.0); %Neutrophils 90.2 % (42.0-75.0); Hemoglobin 9.7 g/dL (14.0-18.0); Mean Corpuscular Hemoglobin 28.7 pg (27.0-31.0); Mean Corpuscular Volume 89.7 fl (80.0-94.0); Mean Platelet Volume 4.8 fL (7.4-10.4); Platelet Count 473 thou/uL (130-400); RBC Distribution Width 17.4 % (11.5-14.5); Red Blood Cell (RBC) Count 3.38 mill/uL (4.70-6.10); White Blood Cell (WBC) Count 17.5 thou/uL (4.8-10.8)
[2016-12-10] MEDS ORDERED: Dexamethasone 10 MG/ML VIAL ONE (19:22)
[2016-12-10] MEDS ORDERED: methylPREDNISolone Sod Succ/PF 125 MG/2 ML VIAL ONE (19:22)
[2016-12-10 19:32] LABS: ALT (SGPT) 27 U/L (8-55); AST (SGOT) 15 U/L (5-34); Albumin 3.4 g/dL (3.4-4.8); Alkaline Phosphatase 238 U/L (40-150); Anion Gap 15 mmol/L (10-20); BUN (Urea Nitrogen) 16 mg/dL (8.4-25.7); Bilirubin, Total Less than 0.3 mg/dL (0.2-1.2); CRP (Inflammatory) 10.71 mg/dL (= or < 0.5); Calc. Creatinine Clearance 0 mL/min (70-130); Carbon Dioxide 22 mmol/L (23-31); Chloride 103 mmol/L (98-107); Estimated GFR-MDRD 68; Globulin 3.2 g/dL (2.4-3.5); Glucose 131 mg/dL (80-115); Lipase 5 U/L (8-78); Potassium 4.4 mmol/L (3.5-5.1); Protein, Total 6.6 g/dL (5.8-8.1); Sodium 136 mmol/L (136-145)
[2016-12-10 19:48] LABS: Prothrombin Time 13.2 SEC (12.0-14.7)
[2016-12-10 19:49] LABS: D-Dimer Test 2.95 *mcg/mL (0.27-0.43)
[2016-12-10 20:11] LABS: Bacteria/HPF None Seen HPF (None Seen); Bilirubin Negative (Negative); Blood, Urine Negative (Negative); Clarity Clear (Clear); Glucose, Urine (Dipstick) Negative (Negative); Leukocyte Negative (Negative); Nitrite Negative (Negative); Protein, Urine (Dipstick) 30 mg/dL (Neg-Trace); RBC/HPF None Seen HPF (0-3); Squamous Epithelial 0-3 HPF (0-3); Urobilinogen 0.2 mg/dL (0.2-1.0); WBC/HPF None Seen HPF (0-3); pH, Urine 5.5 (5.0-9.0)
[2016-12-10] MEDS ORDERED: cefTRIAXone\\ROCEPHIN 2 GM VIAL ONE (20:11)
--- NOTE | 2016-12-10 21:46 | CT ---
ABDOMEN AND PELVIC CT SCAN WITH IV CONTRAST: 12/10/16 HISTORY: 61-year-old male with left lower quadrant pain and fullness. COMPARISON: 12/07/16 noncontrast study. The lung bases appear to be clear of acute process. There is small stable amount of anterior pericar dial fluid. Stable liver hypodensities. Status post cholecystectomy. Right sided ostomy. The bowel l oops appear to be concentrated together raising concern for potential postoperative adhesions. There are some linear and interstitial fat stranding changes within the mesentery and some traction pink es on some of the bowel loops also probably related to adhesions from prior surgery. There is no nikolay al hydronephrosis. No renal calculus or acute obstruction. Stable large, partially ossified right pelvic sidewall mass probably a large residual hematoma. Prominent atherosclerotic changes of the a govind with probable areas of arterial occlusion involving almost the entire right common iliac artery and some high grade stenosis changes of the left common iliac artery. No evidence for overt bowel o bstruction, abscess or significant abnormal fluid collection within the abdomen or pelvis. IMPRESSION: No renal hydronephrosis. Extensive postoperative changes within t he abdomen as above with appearanc e of some multiple potential areas of adhesions involving the small bowel but no evidence for signif icant small bowel dilatation or acute obstruction. Numerous other findings as above unchanged from 1 noncontrast study. POS: [facility]
== END 2016-12-10 20:27 | disposition short-term general hospital (02) ==
LOC: MADERS 18:03
DX: R10.32 Left lower quadrant pain (principal); I10 Essential (primary) hypertension; F41.9 Anxiety disorder, unspecified; F17.210 Nicotine dependence, cigarettes, uncomplicated; Z79.899 Other long term (current) drug therapy
CPT/HCPCS: 71010; 74177; 80053; 81001; 82150; 82550; 83605; 83690; 83880; 85025; 85379; 85610; 85730; 86140; 87040; 87086; 93005; 94640; 96374; 96375; J0696; J1100; J1885; J2270; J2405; J2930; J7050; J7620

== ENCOUNTER 2017-01-31 15:07 | Outpatient (CLI) | payer MEDICARE ==
[2017-01-31 15:27] LABS: #Basophils 0.1 thou/uL (0.0-0.2); #Eosinphils 0.1 thou/uL (0.0-0.7); #Lymphocytes 1.4 thou/uL (1.20-3.40); #Monocytes 0.5 thou/uL (0.11-0.59); #Neutrophils 7.8 thou/uL (1.40-6.50); %Basophils 0.6 % (0.0-1.0); %Eosinophils 0.8 % (0.0-10.0); %Lymphocytes 13.9 % (21.0-51.0); %Neutrophils 79.8 % (42.0-75.0); Hemoglobin 12.3 g/dL (14.0-18.0); Mean Corpuscular HGB CONC 32.3 g/dL (32.0-36.0); Mean Corpuscular Hemoglobin 29.4 pg (27.0-31.0); Mean Platelet Volume 5.1 fL (7.4-10.4); Platelet Count 427 thou/uL (130-400); RBC Distribution Width 14.4 % (11.5-14.5); Red Blood Cell (RBC) Count 4.19 mill/uL (4.70-6.10); White Blood Cell (WBC) Count 9.7 thou/uL (4.8-10.8)
[2017-01-31 15:30] LABS: Prothrombin Time 12.8 SEC (12.0-14.7)
[2017-01-31 15:41] LABS: ALT (SGPT) 64 U/L (8-55); AST (SGOT) 20 U/L (5-34); Alkaline Phosphatase 92 U/L (40-150); Anion Gap 16 mmol/L (10-20); BUN (Urea Nitrogen) 15 mg/dL (8.4-25.7); Bilirubin, Total 0.4 mg/dL (0.2-1.2); Calc. Creatinine Clearance 0 mL/min (70-130); Calcium 9.2 mg/dL (7.8-10.44); Carbon Dioxide 23 mmol/L (23-31); Cardiac Risk 2.6 (Less than 4.5); Chloride 103 mmol/L (98-107); Cholesterol 130 mg/dl (< 200 Desired); Estimated GFR-MDRD Greater than 90; Glucose 102 mg/dL (80-115); HDL Cholesterol 50 mg/dL (>60 Neg Risk); LDL Cholesterol, Calculated 49 mg/dL; Potassium 4.1 mmol/L (3.5-5.1); Sodium 138 mmol/L (136-145); Triglycerides 155 mg/dL (Less than 150)
== END 2017-01-31 15:08 | disposition home or self-care (01) ==
LOC: MADLAB 15:07
PROVIDERS: ATTEND Internal Medicine Cardiovascular Disease
DX: I42.9 Cardiomyopathy, unspecified (principal); R06.02 Shortness of breath; R07.9 Chest pain, unspecified
CPT/HCPCS: 36415; 80053; 80061; 85025; 85610

== ENCOUNTER 2017-02-22 09:07 | Outpatient (CLI) | payer MEDICARE ==
--- NOTE | 2017-02-22 10:42 | ULT ---
FOCUSED ULTRASOUND OF THE ANTERIOR ABDOMINAL WALL: Date: 02-22-17 Comparison: None. History: Patient reports a history of surgery in September 2016 which included cholecystectomy and appen dectomy. 3 cm below the umbilicus, in the area of the patient's scar, patient reports oozing of blood y/brown fluid. Technique: Multiplanar grayscale sonographic imaging of the midline anterior abdominal wall in the ar ea of the patient's surgical wound is provided. FINDINGS: There is minimal decreased echogenicity in the area of the patient's post-operative scar, measuring u p to 5-6 mm. No drainable fluid collection is seen. IMPRESSION: Minimal decreased echogenicity in the area of post-operative scar. This may simply reflect fibrous ti ssue associated with the scar. Minimal fluid within the subcutaneous fat is a possibility. There is c ertainly no significant/drainable abscess. If symptoms persist, a CT examination of the abdomen and pelvis is advised to exclude the possibility of fistulous tract. POS: [facility]
== END 2017-02-22 09:08 | disposition home or self-care (01) ==
LOC: MADULT 09:07
PROVIDERS: ATTEND Family Medicine
DX: T14.8XXA Other injury of unspecified body region, initial encounter (principal)
CPT/HCPCS: 76999

== ENCOUNTER 2017-04-05 09:04 | Emergency (ER) | payer MEDICARE ==
[~2017-04-05 09:04] MED LIST changes: -Iopamidol 370 76% 100 ML VIAL ONE; -Sodium Chloride 0.9% 100 ML BAG ONE
[2017-04-05] MEDS ORDERED: MORPHINE 10 MG/ML SYRINGE ONE ×2 (10:03→12:23)
[2017-04-05] MEDS ORDERED: Promethazine HCl 25 MG/ML VIAL ONE (10:05)
[2017-04-05] MEDS ORDERED: Pantoprazole 40 MG VIAL ONE (10:05)
[2017-04-05] MEDS ORDERED: Sterile Water 10 ML ONE (10:05)
[2017-04-05] MEDS ORDERED: Iopamidol 370 76% 100 ML VIAL ONE (10:06)
[2017-04-05 10:42] LABS: ALT (SGPT) 53 U/L (8-55); AST (SGOT) 36 U/L (5-34); Albumin 4.4 g/dL (3.4-4.8); Alkaline Phosphatase 110 U/L (40-150); Anion Gap 20 mmol/L (10-20); BUN (Urea Nitrogen) 17 mg/dL (8.4-25.7); Bilirubin, Total 1.1 mg/dL (0.2-1.2); Calc. Creatinine Clearance 0 mL/min (70-130); Calcium 10.3 mg/dL (7.8-10.44); Carbon Dioxide 24 mmol/L (23-31); Chloride 89 mmol/L (98-107); Estimated GFR-MDRD 56; Glucose 83 mg/dL (80-115); Potassium 4.9 mmol/L (3.5-5.1); Sodium 128 mmol/L (136-145)
[2017-04-05 10:51] LABS: PTT 34.9 SEC (22.9-36.1); Prothrombin Time 13.4 SEC (12.0-14.7)
[2017-04-05 10:53] LABS: %Lymphocytes 14.7 % (21.0-51.0); %Monocytes 4.5 % (0.0-10.0); %Neutrophils 78.9 % (42.0-75.0); Hemoglobin 13.8 g/dL (14.0-18.0); Mean Corpuscular Hemoglobin 28.8 pg (27.0-31.0); Mean Corpuscular Volume 90.1 fL (80.0-94.0); Mean Platelet Volume 5.7 fL (7.4-10.4); Platelet Count 413 thou/uL (130-400); RBC Distribution Width 12.2 % (11.5-14.5); White Blood Cell (WBC) Count 8.7 thou/uL (4.8-10.8)
[2017-04-05 10:54] LABS: #Basophils 0.1 thou/uL (0.0-0.2); #Lymphocytes 1.3 thou/uL (1.20-3.40); #Monocytes 0.4 thou/uL (0.11-0.59); #Neutrophils 6.9 thou/uL (1.40-6.50); %Basophils 1.3 % (0.0-1.0); %Eosinophils 0.5 % (0.0-10.0)
[2017-04-05 10:55] LABS: Globulin 3.2 g/dL (2.4-3.5); Protein, Total 7.6 g/dL (5.8-8.1)
--- NOTE | 2017-04-05 11:19 | CT ---
CT ABDOMEN AND PELVIS WITH CONTRAST: HISTORY: Nausea and vomiting since Tuesday with black, tarry stool. Possible GI bleed. COMPARISON: 12/10/2016 TECHNIQUE: Multiple contiguous axial images were obtained in a CT of the abdomen and pelvis with contrast. Clarita nal reformats were performed. FINDINGS: Stable hypodensities in the liver likely represent small cysts. The gallbladder has been removed. T he kidneys, adrenal glands, spleen, and pancreas are unremarkable. No free air, free fluid, or stran ding changes are seen in the abdomen or pelvis. There is an ostomy in the right lower quadrant of the abdomen. The large and small bowel are normal in caliber. No obvious mass is seen within the large or small bowel. Atherosclerotic calcifications are seen in the aorta. There is a slightly smaller mass along the rig ht pelvic sidewall, containing calcifications, measuring 7 x 3.9 cm in size. No abdominal or pelvic lymphadenopathy is seen. Mild degenerative changes are seen in the spine. The visualized inferior thorax is unremarkable. IMPRESSION: 1. No significant large or small bowel abnormality. 2. The nonspecific mass along the right pelvic sidewall has slightly decreased in size compared to t he prior examination. POS: [facility]
[2017-04-05 13:48] LABS: #Basophils 0.1 thou/uL (0.0-0.2); #Eosinphils 0.1 thou/uL (0.0-0.7); #Lymphocytes 1.5 thou/uL (1.20-3.40); #Monocytes 0.3 thou/uL (0.11-0.59); #Neutrophils 5.4 thou/uL (1.40-6.50); %Basophils 1.2 % (0.0-1.0); %Lymphocytes 19.4 % (21.0-51.0); %Monocytes 4.3 % (0.0-10.0); %Neutrophils 74.2 % (42.0-75.0); Hemoglobin 11.9 g/dL (14.0-18.0); Mean Corpuscular HGB CONC 31.9 g/dL (32.0-36.0); Mean Corpuscular Hemoglobin 28.6 pg (27.0-31.0); Mean Corpuscular Volume 89.8 fl (80.0-94.0); Mean Platelet Volume 5.5 fL (7.4-10.4); Platelet Count 349 thou/uL (130-400); Red Blood Cell (RBC) Count 4.12 mill/uL (4.70-6.10)
[2017-04-05 13:51] LABS: Anion Gap 16 mmol/L (10-20); BUN (Urea Nitrogen) 16 mg/dL (8.4-25.7); Calc. Creatinine Clearance 0 mL/min (70-130); Carbon Dioxide 21 mmol/L (23-31); Chloride 96 mmol/L (98-107); Estimated GFR-MDRD 78; Glucose 69 mg/dL (80-115); Potassium 4.2 mmol/L (3.5-5.1); Sodium 129 mmol/L (136-145)
== END 2017-04-05 15:55 | disposition short-term general hospital (02) ==
LOC: MADERS 09:04
DX: E87.1 Hypo-osmolality and hyponatremia (principal); I10 Essential (primary) hypertension; F41.9 Anxiety disorder, unspecified; F17.210 Nicotine dependence, cigarettes, uncomplicated; Z79.899 Other long term (current) drug therapy
CPT/HCPCS: 74177; 80053; 82274; 85025; 85610; 85730; 86850; 86900; 86901; 96361; 96374; 96375; 96376; A4216; C9113; J2270; J2550; J7050

== ENCOUNTER 2017-05-27 16:25 | Emergency (ER) | payer MEDICARE ==
[2017-05-27 17:53] LABS: Bilirubin Negative (Negative); Blood, Urine Negative (Negative); Clarity Clear (Clear); Glucose, Urine (Dipstick) Negative (Negative); Leukocyte Negative (Negative); Nitrite Negative (Negative); Protein, Urine (Dipstick) Negative (Neg-Trace); Urobilinogen 0.2 mg/dL (0.2-1.0)
[2017-05-27 18:02] LABS: ALT (SGPT) 30 U/L (8-55); AST (SGOT) 23 U/L (5-34); Albumin 4.3 g/dL (3.4-4.8); Alkaline Phosphatase 95 U/L (40-150); Anion Gap 16 mmol/L (10-20); BUN (Urea Nitrogen) 8 mg/dL (8.4-25.7); Bilirubin, Total 0.9 mg/dL (0.2-1.2); Calc. Creatinine Clearance 0 mL/min (70-130); Calcium 9.6 mg/dL (7.8-10.44); Carbon Dioxide 24 mmol/L (23-31); Chloride 97 mmol/L (98-107); Estimated GFR-MDRD 85; Globulin 2.7 g/dL (2.4-3.5); Glucose 77 mg/dL (80-115); Potassium 4.3 mmol/L (3.5-5.1); Sodium 133 mmol/L (136-145)
[2017-05-27 18:05] LABS: Bacteria/HPF Rare-Few HPF (None Seen); RBC/HPF 0-3 HPF (0-3); Squamous Epithelial 0-3 HPF (0-3); WBC/HPF None Seen HPF (0-3)
[2017-05-27 18:48] LABS: #Basophils 0.1 thou/uL (0.0-0.2); #Eosinphils 0.1 thou/uL (0.0-0.7); #Lymphocytes 1.2 thou/uL (1.20-3.40); #Monocytes 0.8 thou/uL (0.11-0.59); #Neutrophils 9.2 thou/uL (1.40-6.50); %Basophils 0.4 % (0.0-1.0); %Eosinophils 1.2 % (0.0-10.0); %Lymphocytes 10.5 % (21.0-51.0); %Monocytes 6.7 % (0.0-10.0); %Neutrophils 81.2 % (42.0-75.0); Hemoglobin 13.9 g/dL (14.0-18.0); Mean Corpuscular HGB CONC 33.4 g/dL (32.0-36.0); Mean Corpuscular Hemoglobin 30.7 pg (27.0-31.0); Mean Platelet Volume 5.2 fL (7.4-10.4); Platelet Count 228 thou/uL (130-400); RBC Distribution Width 14.4 % (11.5-14.5); Red Blood Cell (RBC) Count 4.52 mill/uL (4.70-6.10); White Blood Cell (WBC) Count 11.3 thou/uL (4.8-10.8)
[2017-05-27] MEDS ORDERED: Ketorolac Tromethamine 30 MG/ML VIAL ONE (19:16)
[2017-05-27] MEDS ORDERED: MORPHINE 10 MG/ML SYRINGE ONE (19:16)
[2017-05-27] MEDS ORDERED: Ondansetron HCl/PF 4 MG/2 ML Vial ONE (19:16)
--- NOTE | 2017-05-27 21:41 | CT ---
CT ABDOMEN AND PELVIS WITHOUT CONTRAST: 05/27/17 COMPARISON: 10/01/16. FINDINGS: Abdominal pain. TECHNIQUE: Multiple contiguous axial images were obtained in a CT of the abdomen and pelvis without contrast. Co avelino reformats were performed. FINDINGS: There is a stable small hypodensity in the right lobe of the liver which likely represents a small cy st. The gallbladder has been removed. The kidneys, adrenal glands, spleen, and pancreas are unremarka ble, but evaluation is limited on this noncontrast examination. The previously seen ureteral stent davison s been removed. No calcifications are seen in either kidney. There is an ostomy in the right lower quadrant of the abdomen. The small bowel are unremarkable. The re are scattered diverticula in the colon. There is soft tissue density along the right pelvic sidewall associated with calcifications, unchange d compared to the prior examination. Surgical clips are seen in the pelvis. Atherosclerotic calcifica tions are seen in the aorta. No abdominal or pelvic lymphadenopathy are seen. IMPRESSION: 1. No evidence of acute intra-abdominal/pelvic abnormality. 2. Hepatic cyst. 3. Diverticulosis. 4. Nonspecific soft tissue density on the right pelvic sidewall containing calcification. POS: [facility]
== END 2017-05-27 22:00 | disposition home or self-care (01) ==
LOC: MADERS 16:25
DX: K57.32 Diverticulitis of large intestine without perforation or abscess without bleeding (principal); I10 Essential (primary) hypertension; F41.9 Anxiety disorder, unspecified; F17.210 Nicotine dependence, cigarettes, uncomplicated; Z85.038 Personal history of other malignant neoplasm of large intestine
CPT/HCPCS: 36415; 74176; 80053; 81001; 82150; 83690; 85025; 87086; 96361; 96374; 96375; J1885; J2270; J2405; J7050

== ENCOUNTER 2017-07-20 15:23 | Emergency (ER) | payer MEDICARE ==
[2017-07-20 16:33] LABS: #Basophils 0.1 thou/uL (0.0-0.2); #Eosinphils 0.1 thou/uL (0.0-0.7); #Lymphocytes 0.9 thou/uL (1.20-3.40); #Monocytes 0.7 thou/uL (0.11-0.59); #Neutrophils 4.7 thou/uL (1.40-6.50); %Basophils 1.2 % (0.0-1.0); %Eosinophils 2.2 % (0.0-10.0); %Lymphocytes 14.2 % (21.0-51.0); %Neutrophils 72.4 % (42.0-75.0); Hemoglobin 14.5 g/dL (14.0-18.0); Mean Corpuscular HGB CONC 32.7 g/dL (32.0-36.0); Mean Corpuscular Hemoglobin 29.7 pg (27.0-31.0); Mean Corpuscular Volume 90.9 fl (80.0-94.0); Mean Platelet Volume 5.9 fL (7.4-10.4); Platelet Count 292 thou/uL (130-400); RBC Distribution Width 12.1 % (11.5-14.5); Red Blood Cell (RBC) Count 4.88 mill/uL (4.70-6.10); White Blood Cell (WBC) Count 6.5 thou/uL (4.8-10.8)
[2017-07-20 16:40] LABS: PTT 36.5 SEC (22.9-36.1); Prothrombin Time 13.3 SEC (12.0-14.7)
[2017-07-20 16:52] LABS: ALT (SGPT) 58 U/L (8-55); AST (SGOT) 46 U/L (5-34); Albumin 4.3 g/dL (3.4-4.8); Alkaline Phosphatase 146 U/L (40-150); Anion Gap 19 mmol/L (10-20); BUN (Urea Nitrogen) 44 mg/dL (8.4-25.7); Bilirubin, Total 0.5 mg/dL (0.2-1.2); CK (CPK) 45 U/L (30-200); Calc. Creatinine Clearance 0 mL/min (70-130); Calcium 9.6 mg/dL (7.8-10.44); Carbon Dioxide 20 mmol/L (23-31); Chloride 97 mmol/L (98-107); Estimated GFR-MDRD 42; Globulin 3.4 g/dL (2.4-3.5); Glucose 93 mg/dL (80-115); Lipase 22 U/L (8-78); Protein, Total 7.7 g/dL (5.8-8.1); Sodium 131 mmol/L (136-145)
[2017-07-20 16:53] LABS: CKMB 1.3 ng/mL (0-6.6); Troponin I Less than 0.010 ng/mL (< 0.028)
[2017-07-20 17:01] LABS: Bilirubin Negative (Negative); Blood, Urine Negative (Negative); Clarity Clear (Clear); Glucose, Urine (Dipstick) Negative (Negative); Leukocyte Negative (Negative); Nitrite Negative (Negative); Protein, Urine (Dipstick) 30 mg/dL (Neg-Trace); Specific Gravity, Urine 1.015 (1.005-1.030); Urobilinogen 0.2 mg/dL (0.2-1.0); pH, Urine 5.5 (5.0-9.0)
[2017-07-20 17:13] LABS: Bacteria/HPF Rare-Few HPF (None Seen); Hyaline Casts/LPF 0-3 HYALINE CAST LPF (0-3 Hyaline); Other Casts/LPF 0-3 FINELY GRAN LPF (0-3 Hyaline); RBC/HPF None Seen HPF (0-3); Squamous Epithelial 0-3 HPF (0-3); WBC/HPF None Seen HPF (0-3)
--- NOTE | 2017-07-20 17:47 | RAD ---
CHEST ONE VIEW: 07/20/17 COMPARISON: 12/10/16 HISTORY: Syncope. FINDINGS: Normal cardiac silhouette. Pulmonary vessels and hilum are normal. Costophrenic angles are clear. Santiago gs are hyperinflated. No consolidation or mass. No pneumothorax or osseous abnormalities. IMPRESSION: Hyperinflation. COPD. POS: [facility]
[2017-07-20] MEDS ORDERED: HYDROcodone/Acetaminophen 10/325 mg Tablet ONE (18:57)
== END 2017-07-20 20:17 | disposition home or self-care (01) ==
LOC: MADERS 15:23
DX: E86.0 Dehydration (principal); I10 Essential (primary) hypertension; F41.9 Anxiety disorder, unspecified; F17.210 Nicotine dependence, cigarettes, uncomplicated; Z79.891 Long term (current) use of opiate analgesic; Z79.899 Other long term (current) drug therapy
CPT/HCPCS: 36415; 71045; 80053; 81003; 81015; 82553; 83605; 83690; 84484; 85025; 85610; 85730; 87040; 87086; 93005; 94760; 96360; 96361; J7050

== ENCOUNTER 2017-07-24 18:32 | Emergency (ER) | payer MEDICARE ==
[2017-07-24 19:31] LABS: #Basophils 0.1 thou/uL (0.0-0.2); #Eosinphils 0.2 thou/uL (0.0-0.7); #Lymphocytes 0.6 thou/uL (1.20-3.40); %Basophils 1.1 % (0.0-1.0)
[2017-07-24 19:36] LABS: #Monocytes 0.3 thou/uL (0.11-0.59); %Eosinophils 3.5 % (0.0-10.0); %Monocytes 4.1 % (0.0-10.0); %Neutrophils 82.2 % (42.0-75.0); Hemoglobin 11.4 g/dL (14.0-18.0); Mean Corpuscular HGB CONC 33.1 g/dL (32.0-36.0); Mean Corpuscular Hemoglobin 29.7 pg (27.0-31.0); Mean Corpuscular Volume 89.8 fl (80.0-94.0); Mean Platelet Volume 5.8 fL (7.4-10.4); Platelet Count 254 thou/uL (130-400); RBC Distribution Width 11.9 % (11.5-14.5); Red Blood Cell (RBC) Count 3.84 mill/uL (4.70-6.10); White Blood Cell (WBC) Count 6.1 thou/uL (4.8-10.8)
[2017-07-24] MEDS ORDERED: Clindamycin/D5W 600 mg/50 ml Premix Bag ONE (19:42)
[2017-07-24 19:48] LABS: Anion Gap 15 mmol/L (10-20); BUN (Urea Nitrogen) 13 mg/dL (8.4-25.7); Calc. Creatinine Clearance 0 mL/min (70-130); Carbon Dioxide 20 mmol/L (23-31); Chloride 102 mmol/L (98-107); Estimated GFR-MDRD 83; Glucose 108 mg/dL (80-115); Sodium 133 mmol/L (136-145)
--- NOTE | 2017-07-24 20:07 | RAD ---
CHEST ONE VIEW: History: Cough. Comparison: 07-20-17 FINDINGS: Lungs are clear. No pneumothorax or effusion. Cardiac silhouette and mediastinal contours are within normal limits. IMPRESSION: No acute intrathoracic abnormality. No significant change. POS: [facility]
[2017-07-24 20:24] LABS: Bilirubin Negative (Negative); Blood, Urine Negative (Negative); Clarity Clear (Clear); Glucose, Urine (Dipstick) Negative (Negative); Leukocyte Negative (Negative); Nitrite Negative (Negative); Protein, Urine (Dipstick) Trace mg/dL (Neg-Trace); Specific Gravity, Urine 1.015 (1.005-1.030); Urobilinogen 0.2 mg/dL (0.2-1.0); pH, Urine 5.5 (5.0-9.0)
[2017-07-24] MEDS ORDERED: Fentanyl 100 MCG/2 ML VIAL ONE (20:48)
[2017-07-24] MEDS ORDERED: Ondansetron HCl/PF 4 MG/2 ML Vial ONE (20:48)
== END 2017-07-24 22:16 | disposition home or self-care (01) ==
LOC: MADERS 18:32
DX: L03.311 Cellulitis of abdominal wall (principal); I10 Essential (primary) hypertension; F41.9 Anxiety disorder, unspecified; F17.210 Nicotine dependence, cigarettes, uncomplicated; Z79.899 Other long term (current) drug therapy
CPT/HCPCS: 71045; 80048; 81003; 83605; 85025; 87040; 96361; 96365; 96375; J2405; J3010; J3370; J3490; J7050

== ENCOUNTER 2017-08-12 14:43 | Outpatient (CLI) | payer MEDICARE ==
--- NOTE | 2017-08-12 15:37 | RAD ---
CHEST 2 VIEWS: HISTORY: Dyspnea. COMPARISON: 07/24/17. FINDINGS: Cardiac silhouette and magnified. Pulmonary vasculature are unremarkable. Lungs remain hyperinflate d with flattening of each hemidiaphragm. No confluent airspace consolidation, pneumothorax, or pleur al fluid. IMPRESSION: Chronic obstructive pulmonary disease. Chronic-type findings appear stable. POS: [facility]
== END 2017-08-12 14:44 | disposition home or self-care (01) ==
LOC: MADRAD 14:43
PROVIDERS: ATTEND Family Medicine
DX: J44.1 Chronic obstructive pulmonary disease with (acute) exacerbation (principal)
CPT/HCPCS: 71046

== ENCOUNTER 2017-09-14 20:52 | Emergency (ER) | payer MEDICARE ==
[~2017-09-14 20:52] MED LIST changes: +Iopamidol 370 76% 100 ML VIAL ONE
[2017-09-14] MEDS ORDERED: Morphine 4 MG/ML VIAL ONE ×2 (21:30→22:38)
[2017-09-14] MEDS ORDERED: Pantoprazole 40 MG VIAL ONE (21:30)
[2017-09-14 21:33] LABS: #Basophils 0.1 thou/uL (0.0-0.2); #Eosinphils 0.2 thou/uL (0.0-0.7); #Lymphocytes 1.3 thou/uL (1.20-3.40); #Monocytes 0.4 thou/uL (0.11-0.59); #Neutrophils 4.7 thou/uL (1.40-6.50); %Basophils 1.5 % (0.0-1.0); %Eosinophils 2.8 % (0.0-10.0); %Lymphocytes 19.8 % (21.0-51.0); %Monocytes 5.7 % (0.0-10.0); %Neutrophils 70.2 % (42.0-75.0); Hemoglobin 15.1 g/dL (14.0-18.0); Mean Corpuscular HGB CONC 34.1 g/dL (32.0-36.0); Mean Corpuscular Hemoglobin 32.3 pg (27.0-31.0); Mean Corpuscular Volume 94.9 fL (78.0-98.0); Platelet Count 260 thou/uL (130-400); RBC Distribution Width 12.5 % (11.5-14.5); Red Blood Cell (RBC) Count 4.66 mill/uL (4.70-6.10); White Blood Cell (WBC) Count 6.7 thou/uL (4.8-10.8)
[2017-09-14 21:53] LABS: ALT (SGPT) 20 U/L (8-55); AST (SGOT) 19 U/L (5-34); Albumin 4.7 g/dL (3.4-4.8); Alkaline Phosphatase 81 U/L (40-150); Anion Gap 20 mmol/L (10-20); BUN (Urea Nitrogen) 11 mg/dL (8.4-25.7); Bilirubin, Total 0.4 mg/dL (0.2-1.2); Calc. Creatinine Clearance 0 mL/min (70-130); Calcium 9.8 mg/dL (7.8-10.44); Carbon Dioxide 21 mmol/L (23-31); Chloride 95 mmol/L (98-107); Estimated GFR-MDRD 83; Globulin 2.8 g/dL (2.4-3.5); Glucose 82 mg/dL (80-115); Lipase 12 U/L (8-78); Potassium 4.4 mmol/L (3.5-5.1); Protein, Total 7.5 g/dL (5.8-8.1); Sodium 132 mmol/L (136-145)
[2017-09-14] MEDS ORDERED: Ketorolac Tromethamine 30 MG/ML VIAL ONE (22:38)
--- NOTE | 2017-09-14 22:46 | CT ---
CT ABDOMEN AND PELVIS WITH IV CONTRAST: 09/14/17 HISTORY: Abdominal pain. Colon surgery, colostomy, cholecystectomy, appendectomy. FINDINGS: Comparison is made with exam of 04/06/17. The lung bases are clear. Liver cysts are again seen. The spleen, pancreas, adrenal glands and kidne ys are normal. No free air, free fluid, or lymphadenopathy seen in the abdomen or pelvis. The right lower quadrant colostomy with adjacent parastomal hernia are again seen. The mass-like dens ity with calcification in the right pelvis is stable. Absence of oral contrast reduces the sensitivit y of the exam particularly for evaluation of bowel. Soft tissue thickening anterior to the bladder is stable. IMPRESSION: No definite evidence of acute process. POS: [facility]
== END 2017-09-14 23:00 | disposition home or self-care (01) ==
LOC: MADERS 20:52
DX: R10.31 Right lower quadrant pain (principal); I10 Essential (primary) hypertension; F17.210 Nicotine dependence, cigarettes, uncomplicated; Z85.038 Personal history of other malignant neoplasm of large intestine; Z79.899 Other long term (current) drug therapy
CPT/HCPCS: 74177; 80053; 83605; 83690; 85025; 96361; 96374; 96375; 96376; C9113; J1885; J2270; J7050

== ENCOUNTER 2017-09-15 12:00 | Outpatient (CLI) | payer MEDICARE ==
--- NOTE | 2017-09-15 13:42 | RAD ---
ABDOMEN ONE VIEW: HISTORY: Abdominal pain. COMPARISON: 09/14/2017 FINDINGS: A large amount of gas and stool are apparent throughout the colon. A right lower quadrant ostomy is apparent. The visualized bowel gas pattern is nonspecific. Metallic clips are evident throughout th e lower abdomen. Degenerative changes of the lumbar spine. IMPRESSION: Postoperative changes. Nonspecific bowel gas pattern. No evidence of free intraperitoneal gas. POS: [facility]
== END 2017-09-15 12:01 | disposition home or self-care (01) ==
LOC: MADRAD 12:00
PROVIDERS: ATTEND Family Medicine
DX: R10.31 Right lower quadrant pain (principal); Z98.890 Other specified postprocedural states
CPT/HCPCS: 74018

== ENCOUNTER 2017-11-24 15:29 | Outpatient (CLI) | payer MEDICARE ==
[2017-11-24 16:46] LABS: Bilirubin Negative (Negative); Blood, Urine Trace (Negative); Glucose, Urine (Dipstick) Negative (Negative); Leukocyte Negative (Negative); Nitrite Negative (Negative); Protein, Urine (Dipstick) Negative (Neg-Trace); Urobilinogen 0.2 mg/dL (0.2-1.0)
[2017-11-24 17:01] LABS: Clarity Hazy (Clear)
[2017-11-24 17:02] LABS: Bacteria/HPF Rare-Few HPF (None Seen); RBC/HPF 0-3 HPF (0-3); Squamous Epithelial 0-3 HPF (0-3); WBC/HPF 0-3 HPF (0-3)
== END 2017-11-24 15:30 | disposition home or self-care (01) ==
LOC: MADLABBHPM 15:29
PROVIDERS: ATTEND Family Medicine
DX: R30.0 Dysuria (principal)
CPT/HCPCS: 81001; 87077; 87086

== ENCOUNTER 2017-12-03 10:33 | Emergency (ER) | payer MEDICARE ==
[2017-12-03 10:57] LABS: Bilirubin Negative (Negative); Blood, Urine Negative (Negative); Clarity Clear (Clear); Glucose, Urine (Dipstick) Negative (Negative); Leukocyte Negative (Negative); Nitrite Negative (Negative); Protein, Urine (Dipstick) Negative (Neg-Trace); Specific Gravity, Urine 1.015 (1.005-1.030); Urobilinogen 0.2 mg/dL (0.2-1.0)
[2017-12-03 11:29] LABS: #Basophils 0.1 thou/uL (0.0-0.2); #Eosinphils 0.1 thou/uL (0.0-0.7); #Lymphocytes 1.2 thou/uL (1.20-3.40); #Monocytes 0.4 thou/uL (0.11-0.59); #Neutrophils 4.5 thou/uL (1.40-6.50); %Basophils 1.5 % (0.0-1.0); %Eosinophils 1.5 % (0.0-10.0); %Lymphocytes 18.7 % (21.0-51.0); %Monocytes 5.6 % (0.0-10.0); %Neutrophils 72.7 % (42.0-75.0); Hemoglobin 15.7 g/dL (14.0-18.0); Mean Corpuscular HGB CONC 33.3 g/dL (32.0-36.0); Mean Corpuscular Hemoglobin 31.3 pg (27.0-31.0); Mean Corpuscular Volume 93.8 fL (78.0-98.0); Mean Platelet Volume 5.3 fL (7.4-10.4); Platelet Count 290 thou/uL (130-400); RBC Distribution Width 10.8 % (11.5-14.5); Red Blood Cell (RBC) Count 5.02 mill/uL (4.70-6.10); White Blood Cell (WBC) Count 6.2 thou/uL (4.8-10.8)
--- NOTE | 2017-12-03 11:38 | CT ---
ABDOMEN AND PELVIS CT NONCONTRAST: COMPARISON: 09/14/2017. INDICATION: Abdominal pain. FINDINGS: There is abnormal wall thickening of multiple loops of unopacified bowel of the low abdomen and pelvi s with surrounding fat stranding. These approximate a right lower quadrant ostomy site. The bowel i s incompletely evaluated without IV or enteric contrast, however. There is prominent wall thickening of the urinary bladder which approximates the inflamed bowel. Solid abdominal organs are not reliab ly evaluated without IV contrast. There are scattered small hypodensities of the hepatic parenchyma, incompletely assessed. No free air visualized. There is mild ascites of the low abdomen and pelvis related to the above-described bowel inflammation. There is a prominent-sized abnormal partially ca lcified density of the posterior right iliac chain region, grossly stable to prior exam. Osseous deg enerative change is present. IMPRESSION: Prominent inflammation about unopacified bowel of the low abdomen and pelvis with adjacent fat strand ing, and free fluid. There is also reactive wall thickening of the urinary bladder. Recommend clini salomón correlation in this regard. POS: [facility]
[2017-12-03 11:44] LABS: ALT (SGPT) 22 U/L (8-55); AST (SGOT) 20 U/L (5-34); Albumin 4.8 g/dL (3.4-4.8); Alkaline Phosphatase 82 U/L (40-150); Anion Gap 19 mmol/L (10-20); BUN (Urea Nitrogen) 10 mg/dL (8.4-25.7); Bilirubin, Total 1.2 mg/dL (0.2-1.2); Calc. Creatinine Clearance 0 mL/min (70-130); Carbon Dioxide 22 mmol/L (23-31); Chloride 91 mmol/L (98-107); Estimated GFR-MDRD 90; Glucose 89 mg/dL (80-115); Lipase 13 U/L (8-78); Potassium 4.1 mmol/L (3.5-5.1); Protein, Total 7.8 g/dL (5.8-8.1); Sodium 128 mmol/L (136-145)
[2017-12-03] MEDS ORDERED: Morphine 4 MG/ML VIAL ONE (12:23)
[2017-12-03] MEDS ORDERED: Ciprofloxacin Lactate/D5W 400 mg/200 ml Premix ONE (12:23)
[2017-12-03] MEDS ORDERED: metroNIDAZOLE 500 MG/100 ML BAG ONE (12:23)
== END 2017-12-03 13:25 | disposition short-term general hospital (02) ==
LOC: MADERS 10:33
DX: K56.609 Unspecified intestinal obstruction, unspecified as to partial versus complete obstruction (principal); K52.9 Noninfective gastroenteritis and colitis, unspecified; I10 Essential (primary) hypertension; F17.210 Nicotine dependence, cigarettes, uncomplicated; Z79.899 Other long term (current) drug therapy
CPT/HCPCS: 36415; 74176; 80053; 81003; 83605; 83690; 85025; 87086; 96374; 96375; J0744; J2270

== ENCOUNTER 2018-01-14 05:47 | Emergency (ER) | payer MEDICARE ==
[2018-01-14 06:40] LABS: Bilirubin Negative (Negative); Clarity Turbid (Clear); Nitrite Negative (Negative)
[2018-01-14 06:44] LABS: Specific Gravity, Urine 1.017 (1.002-1.036)
[2018-01-14 06:45] LABS: Glucose, Urine (Dipstick) Negative (Negative); Leukocyte Negative (Negative); Protein, Urine (Dipstick) > or equal to 300 mg/dL (Neg-Trace)
[2018-01-14 06:46] LABS: Bacteria/HPF Rare-Few HPF (None Seen); Blood, Urine Large (Negative); RBC/HPF GREATER THAN 50-TNTC HPF (0-3); Squamous Epithelial 0-3 HPF (0-3); Urobilinogen 0.2 mg/dL (0.2-1.0); WBC/HPF 0-3 HPF (0-3)
== END 2018-01-14 07:05 | disposition home or self-care (01) ==
LOC: MADERS 05:47
DX: R31.0 Gross hematuria (principal); I10 Essential (primary) hypertension; F41.9 Anxiety disorder, unspecified; F17.210 Nicotine dependence, cigarettes, uncomplicated
CPT/HCPCS: 81003; 81015; 87077; 87086; 87186; 99283

== ENCOUNTER 2018-05-03 11:50 | Outpatient (CLI) | payer MEDICARE ==
[2018-05-03 13:13] LABS: Nitrite Positive (Negative)
[2018-05-03 13:17] LABS: Leukocyte Large (Negative); Specific Gravity, Urine 1.015 (1.005-1.030)
[2018-05-03 13:18] LABS: Glucose, Urine (Dipstick) Negative (Negative); Protein, Urine (Dipstick) 100 mg/dL (Neg-Trace)
[2018-05-03 13:19] LABS: Bilirubin Moderate (Negative); Blood, Urine Large (Negative)
[2018-05-03 13:20] LABS: Clarity Turbid (Clear)
[2018-05-03 13:26] LABS: Bacteria/HPF 2+ HPF (None Seen); RBC/HPF GREATER THAN 50-TNTC HPF (0-3); Squamous Epithelial 0-3 HPF (0-3); WBC/HPF 21-50 HPF (0-3)
== END 2018-05-03 11:51 | disposition home or self-care (01) ==
LOC: MADLABBHPM 11:50
PROVIDERS: ATTEND Family Medicine
DX: M47.22 Other spondylosis with radiculopathy, cervical region (principal); G89.4 Chronic pain syndrome
CPT/HCPCS: 81001; 87077; 87086; 87186

== ENCOUNTER 2018-06-20 15:12 | Emergency (ER) | payer MEDICARE ==
[2018-06-20] MEDS ORDERED: Ibuprofen 800 MG TAB ONE (15:48)
[2018-06-20 16:18] LABS: Bilirubin Negative (Negative); Blood, Urine Negative (Negative); Glucose, Urine (Dipstick) Negative (Negative); Leukocyte Negative (Negative); Nitrite Negative (Negative); Protein, Urine (Dipstick) Negative (Neg-Trace); Urobilinogen 0.2 mg/dL (0.2-1.0); pH, Urine 6.5 (5.0-9.0)
[2018-06-20 16:21] LABS: Clarity Hazy (Clear)
--- NOTE | 2018-06-20 16:41 | CT ---
CT abdomen and pelvis noncontrast HISTORY: Bilateral flank pain. COMPARISON: 12/03/2017 and 09/14/2017. FINDINGS: Each renal collecting system and ureter are decompressed without stone apparent. Urinary bladder now contains a Angeles catheter, small amount of fluid, and large amount of gas. No sto shelby are apparent within the bladder. Lack of contrast decreases sensitivity of the exam for other abnormalities. Prominent arterial calcif ication. Postoperative changes throughout the bowel. The partially calcified soft tissue density mass along the right iliac chain at the posterior pelvis is stable compared to prior exams. IMPRESSION: Large amount of gas within the urinary bladder favored to be related to the Angeles cathete r. No evidence of urinary tract obstruction or calcification. Prominent atherosclerosis. Chronic-type findings in the abdomen and pelvis appear stable.
[2018-06-20 16:46] LABS: #Basophils 0.1 thou/uL (0.0-0.2); #Lymphocytes 0.2 thou/uL (1.20-3.40); #Monocytes 0.3 thou/uL (0.11-0.59); #Neutrophils 5.3 thou/uL (1.40-6.50); %Basophils 0.9 % (0.0-1.0); %Eosinophils 0.3 % (0.0-10.0); %Lymphocytes 3.5 % (21.0-51.0); %Monocytes 4.9 % (0.0-10.0); %Neutrophils 90.3 % (42.0-75.0); Hemoglobin 13.8 g/dL (14.0-18.0); Mean Corpuscular HGB CONC 32.8 g/dL (32.0-36.0); Mean Corpuscular Hemoglobin 31.2 pg (27.0-31.0); Mean Corpuscular Volume 95.2 fL (78.0-98.0); Platelet Count 212 thou/uL (130-400); RBC Distribution Width 12.3 % (11.5-14.5); Red Blood Cell (RBC) Count 4.41 mill/uL (4.70-6.10); White Blood Cell (WBC) Count 5.8 thou/uL (4.8-10.8)
[2018-06-20 17:01] LABS: ALT (SGPT) 29 U/L (8-55); AST (SGOT) 22 U/L (5-34); Albumin 3.9 g/dL (3.4-4.8); Alkaline Phosphatase 69 U/L (40-150); Anion Gap 18 mmol/L (10-20); BUN (Urea Nitrogen) 4 mg/dL (8.4-25.7); Bilirubin, Total 1.1 mg/dL (0.2-1.2); Calc. Creatinine Clearance 0 mL/min (70-130); Calcium 9.1 mg/dL (7.8-10.44); Carbon Dioxide 23 mmol/L (23-31); Chloride 91 mmol/L (98-107); Estimated GFR-MDRD Greater than 90; Globulin 2.7 g/dL (2.4-3.5); Glucose 86 mg/dL (80-115); Lipase 4 U/L (8-78); Potassium 3.9 mmol/L (3.5-5.1); Protein, Total 6.6 g/dL (5.8-8.1); Sodium 128 mmol/L (136-145)
== END 2018-06-20 18:00 | disposition home or self-care (01) ==
LOC: MADERS 15:12
DX: R33.9 Retention of urine, unspecified (principal); R10.9 Unspecified abdominal pain; I10 Essential (primary) hypertension; F41.9 Anxiety disorder, unspecified; F17.210 Nicotine dependence, cigarettes, uncomplicated; Z79.899 Other long term (current) drug therapy
CPT/HCPCS: 36415; 51702; 74176; 80053; 81003; 83690; 85025